=== PATIENT | male | born 1970 | race Caucasian/White ===

== ENCOUNTER 2024-08-23 09:17 | Emergency (ER) | payer MEDICAID ==
[~2024-08-23] VITALS: Ht 182.9 cm; Wt 80.0 kg
[2024-08-23 09:22] VITALS: O2SAT 98
[2024-08-23] MEDS ORDERED: KETOROLAC 30MG/ML VIAL IM STA (09:52)
[2024-08-23] MEDS ORDERED: ONDANSETRON 4MG ODT PO STA (09:52)
[2024-08-23 09:55] LABS: BASOPHILS % 0.2 % (0.0-2.0); EOSINOPHILS % 0.1 % (0.0-5.0); HEMOGLOBIN. 13.7 g/dL (14.0-18.0); LYMPHOCYTES % 7.3 % (20.0-50.0); MEAN CORPUSCULAR HGB CONC 34.3 g/dL (31.0-37.0); MEAN CORPUSCULAR VOLUME 93.2 fL (80.0-94.0); MEAN PLATELET VOLUME 8.1 fl (7.4-10.4); MONOCYTES % 2.5 % (2.0-8.0); NEUTROPHILS % 89.9 % (40.0-76.0); PLATELET 244 x1000/uL (130-400); RED BLOOD CELL COUNT 4.29 mill/uL (4.7-6.1); RED CELL DISTRIBUTION WIDTH 13.2 % (11.6-14.6); WHITE BLOOD COUNT 10.5 x1000/uL (4.5-11.0)
[2024-08-23] MEDS: HALOPERIDOL LACTATE 5MG/ML VIAL IM ONE (10:03)
[2024-08-23] MEDS: MAGNESIUM/ALUMINUM HYDROXIDE/SIMETHICONE 30ML UDC PO STA (10:03)
[2024-08-23] MEDS: DIPHENHYDRAMINE 50MG/ML VIAL IM ONE (10:04)
[2024-08-23] MEDS: DICYCLOMINE 10 MG/5 ML ORAL SYR PO STA (10:12)
[2024-08-23 10:34] LABS: CARBON DIOXIDE 23 mEq/L (21-32); CHLORIDE 100 mEq/L (98-107); POTASSIUM 3.8 mEq/L (3.5-5.1); SODIUM 132 mEq/L (136-145)
[2024-08-23 10:35] LABS: CALCIUM 9.1 mg/dL (8.7-10.4)
[2024-08-23 10:40] LABS: ETHANOL BLOOD < 10 mg/dL (<10); GLUCOSE 173 mg/dL (70-105); UREA NITROGEN BLOOD 16 mg/dL (9-23)
[2024-08-23 10:41] LABS: ALANINE AMINOTRANSFERASE 63 IU/L (10-49); ASPARTATE AMINOTRANSFERASE 63 IU/L (<34)
[2024-08-23 10:42] LABS: ALBUMIN 4.1 g/dL (3.2-4.8); BILIRUBIN DIRECT 0.2 mg/dL (<=3.0); BILIRUBIN TOTAL 0.5 mg/dL (0.1-1.0); PROTEIN TOTAL 7.8 g/dL (6.0-8.3)
[2024-08-23 11:36] VITALS: BP 151/87; PULSE 51; RESP 18
[2024-08-23] MEDS: KETOROLAC 30MG/ML VIAL IM ONE (11:36)
[2024-08-23 11:55] VITALS: TEMP 36.6
[2024-08-23 12:05] LABS: CLARITY URINE CLEAR (CLEAR); COLOR URINE YELLOW (YELLOW); GLUCOSE URINE NEGATIVE (NEGATIVE); KETONES URINE NEGATIVE (NEGATIVE); LEUKOCYTE ESTERASE URINE NEGATIVE (NEGATIVE); NITRITE URINE NEGATIVE (NEGATIVE); OCCULT BLOOD URINE NEGATIVE (NEGATIVE); PH URINE 8.5 (4.5-8.0); PROTEIN URINE NEGATIVE (NEGATIVE); UROBILINOGEN URINE 0.2 E.U./dL (0.2-1.0)
[2024-08-23] MEDS ORDERED: IBUP-2029 MT (13:13)
== END 2024-08-23 13:29 | disposition home or self-care (01) ==
LOC: ER 09:17
DX: K80.60 Calculus of gallbladder and bile duct with cholecystitis, unspecified, without obstruction (principal); Z88.3 Allergy status to other anti-infective agents; Z98.890 Other specified postprocedural states
CPT/HCPCS: 80076; 80048; 81003; 80320; 83690; 85025; 36415; 74176; 96372; 99285; J1200; J1630; J1885; G0480